=== PATIENT | male | born 1945 | race Caucasian/White ===

== ENCOUNTER 2022-08-30 03:03 | Inpatient (IN) ==
[2022-08-30 04:03] LABS: ABS Lymphocytes 0.7 10^3/ul (1.0-4.8); ABS Monocytes 0.8 10^3/ul (0-0.8); ABS Neutrophils 5.2 10^3/ul (1.5-7.7); Eosinophil % 0.6 %; Hematocrit 47 % (42-52); Hemoglobin 15.3 g/dL (14.0-18.0); Lymphocyte % 10.9 %; Mean Corpuscular HGB Conc 32 g/dL (31-36); Mean Corpuscular Hemoglobin 28 pg (27-31); Mean Corpuscular Volume 88 fL (80-94); Mean Platelet Volume 9.3 fL (7.4-10.4); Nucleated Red Blood Cells % 0.1; Platelet Count 133 10^3/uL (150-450); Red Blood Count 5.38 10^6 /uL (4.18-5.48); Red Cell Distribution Width 15 % (10-15); White Blood Count 6.8 10^3/uL (3.5-10.8)
[2022-08-30] MEDS ORDERED: Furosemide 40 mg/4 ml IV VIAL IV SLOW PU ONE (04:25)
[2022-08-30 04:51] LABS: Albumin 4.1 g/dL (3.2-5.2); Albumin/Globulin Ratio 1.2 (1-3); Calcium 10.3 mg/dL (8.6-10.3); Creatinine, Serum 1.29 mg/dL (0.67-1.17); Globulin 3.5 g/dL (2-4); Potassium 3.7 mmol/L (3.5-5.0); Total Bilirubin 3.9 mg/dL (0.2-1.0); Total Protein 7.6 g/dL (6.4-8.9); eGFR CKD-EPI 57.5 (>60)
[2022-08-30] MEDS ORDERED: Ondansetron 4 mg VIAL 2 MG/ML 2 ml VIAL IV PRN (05:07)
[2022-08-30] MEDS ORDERED: Digoxin IV 0.5 MG/2 ML AMP (0.25 MG/ML) IV SLOW PU ONE (05:07)
[2022-08-30 05:21] LABS: High Sensitivity Troponin 1 Hr 106 pg/mL (<20)
[2022-08-30 05:30] LABS: Venous Bicarbonate HCO3 39.6 mmol/L (24-28)
[2022-08-30] MEDS: Enoxaparin 100 MG/ML SYR SUBCUT SCH ×2 (05:59→17:59)
[2022-08-30 07:35] LABS: Urine Appearance Clear; Urine Bilirubin Negative (Negative); Urine Blood 1+ (Negative); Urine Color Yellow; Urine Glucose Negative (Negative); Urine Ketones Negative (Negative); Urine Nitrite Negative (Negative); Urine Protein Negative (Negative); Urine Specific Gravity 1.009 (1.002-1.030); Urine Urobilinogen Negative (Negative)
[2022-08-30 08:15] LABS: Urine Bacteria Absent (Absent); Urine Red Blood Cell Trace(0-2/hpf) (Absent); Urine White Blood Cell 1+(6-10/hpf) (Absent)
[2022-08-30] MEDS: Furosemide 40 mg/4 ml IV VIAL IV SLOW PU SCH ×2 (08:44→17:59)
[2022-08-30] MEDS ORDERED: Cholecalciferol (VIT D3) 1,000 unit TAB PO SCH (09:00)
[2022-08-30] MEDS ORDERED: Albuterol HFA INHALER 8 gm MDI INH SCH (09:00)
[2022-08-30] MEDS: Mometasone 220 MCG MDI INH SCH ×3 (09:19→19:04)
[2022-08-31 04:47] LABS: ABS Eosinophils 0.1 10^3/ul (0-0.6); ABS Lymphocytes 0.8 10^3/ul (1.0-4.8); ABS Monocytes 0.9 10^3/ul (0-0.8); ABS Neutrophils 4.6 10^3/ul (1.5-7.7); Eosinophil % 1.5 %; Hematocrit 40 % (42-52); Hemoglobin 12.6 g/dL (14.0-18.0); Lymphocyte % 12.4 %; Mean Corpuscular HGB Conc 32 g/dL (31-36); Mean Corpuscular Hemoglobin 28 pg (27-31); Mean Corpuscular Volume 88 fL (80-94); Mean Platelet Volume 9.4 fL (7.4-10.4); Nucleated Red Blood Cells % 0.1; Platelet Count 137 10^3/uL (150-450); Red Blood Count 4.55 10^6 /uL (4.18-5.48); Red Cell Distribution Width 15 % (10-15); White Blood Count 6.5 10^3/uL (3.5-10.8)
[2022-08-31 05:22] LABS: Calcium 9.3 mg/dL (8.6-10.3); Creatinine, Serum 1.47 mg/dL (0.67-1.17); Magnesium 1.7 mg/dL (1.9-2.7); eGFR CKD-EPI 49.1 (>60)
[2022-08-31] MEDS: Enoxaparin 100 MG/ML SYR SUBCUT SCH (05:22)
[2022-08-31 05:41] LABS: Phosphorus 2.4 mg/dL (2.5-5.0); Potassium 3.4 mmol/L (3.5-5.0)
[2022-08-31] MEDS ORDERED: Potassium Chlor 20 meq TAB.ER PO ONE ×2 (05:52→10:40)
[2022-08-31] MEDS ORDERED: Magnesium Sulfate 2 gm BAG 2 GM/50 ML BAG IVPB ONE (05:52)
[2022-08-31] MEDS ORDERED: Digoxin IV 0.5 MG/2 ML AMP (0.25 MG/ML) IV SLOW PU ONE (08:00)
[2022-08-31] MEDS ORDERED: Levalbuterol HFA INHALER MDI INH PRN (08:10)
[2022-08-31] MEDS: Furosemide 40 mg/4 ml IV VIAL IV SLOW PU SCH (08:19)
[2022-08-31] MEDS: Mometasone 220 MCG MDI INH SCH ×2 (09:06→19:03)
[2022-08-31 11:20] LABS: Theophylline 23.8 mcg/mL (10-20.0)
[2022-08-31] MEDS ORDERED: Enoxaparin 40 MG/0.4 ML SYR SUBCUT SCH (17:00)
[2022-08-31 17:41] LABS: ABS Eosinophils 0.1 10^3/ul (0-0.6); ABS Lymphocytes 0.7 10^3/ul (1.0-4.8); ABS Monocytes 1.3 10^3/ul (0-0.8); ABS Neutrophils 5.9 10^3/ul (1.5-7.7); Eosinophil % 1.7 %; Hematocrit 40 % (42-52); Hemoglobin 12.7 g/dL (14.0-18.0); Lymphocyte % 8.6 %; Mean Corpuscular HGB Conc 32 g/dL (31-36); Mean Corpuscular Hemoglobin 28 pg (27-31); Mean Corpuscular Volume 87 fL (80-94); Mean Platelet Volume 9.1 fL (7.4-10.4); Nucleated Red Blood Cells % 0.1; Platelet Count 146 10^3/uL (150-450); Red Cell Distribution Width 15 % (10-15)
[2022-08-31] MEDS ORDERED: Albuterol/Ipratropium NEB.SOL (2.5/0.5 MG) 3 ML NEB.SOLN INH ONE (18:11)
[2022-08-31 18:26] LABS: Calcium 9.2 mg/dL (8.6-10.3); Creatinine, Serum 1.51 mg/dL (0.67-1.17); Magnesium 2.2 mg/dL (1.9-2.7); Potassium 3.8 mmol/L (3.5-5.0); eGFR CKD-EPI 47.6 (>60)
[2022-08-31] MEDS: Albuterol/Ipratropium NEB.SOL (2.5/0.5 MG) 3 ML NEB.SOLN INH SCH (19:20)
[2022-09-01] MEDS ORDERED: KCL 20 MEQ/100 ML IVPREMIX 20 MEQ/100 ML BAG IV ONE (00:56)
[2022-09-01] MEDS ORDERED: Acetaminophen IV 1 GM/100ML 1,000 MG/100 ML BAG IV PRN (03:07)
[2022-09-01 05:15] LABS: ABS Eosinophils 0.1 10^3/ul (0-0.6); ABS Lymphocytes 0.8 10^3/ul (1.0-4.8); ABS Monocytes 1.1 10^3/ul (0-0.8); ABS Neutrophils 5.1 10^3/ul (1.5-7.7); Eosinophil % 1.8 %; Hematocrit 41 % (42-52); Hemoglobin 12.8 g/dL (14.0-18.0); Lymphocyte % 11.2 %; Mean Corpuscular HGB Conc 32 g/dL (31-36); Mean Corpuscular Hemoglobin 28 pg (27-31); Mean Corpuscular Volume 88 fL (80-94); Mean Platelet Volume 9.2 fL (7.4-10.4); Platelet Count 128 10^3/uL (150-450); Red Blood Count 4.63 10^6 /uL (4.18-5.48); Red Cell Distribution Width 15 % (10-15); White Blood Count 7.1 10^3/uL (3.5-10.8)
[2022-09-01 05:51] LABS: Calcium 9.2 mg/dL (8.6-10.3); Creatinine, Serum 1.27 mg/dL (0.67-1.17); Magnesium 2.1 mg/dL (1.9-2.7); Phosphorus 2.3 mg/dL (2.5-5.0); Potassium 3.9 mmol/L (3.5-5.0); Theophylline 19.7 mcg/mL (10-20.0); eGFR CKD-EPI 58.6 (>60)
[2022-09-01] MEDS: Albuterol/Ipratropium NEB.SOL (2.5/0.5 MG) 3 ML NEB.SOLN INH SCH ×2 (07:35→20:28)
[2022-09-01] MEDS: Mometasone 220 MCG MDI INH SCH ×2 (07:35→20:28)
[2022-09-01] MEDS: Enoxaparin 40 MG/0.4 ML SYR SUBCUT SCH (09:15)
[2022-09-01] MEDS ORDERED: Furosemide 20 mg/2 ml IV VIAL IV SLOW PU SCH (11:00)
[2022-09-02 05:31] LABS: ABS Eosinophils 0.1 10^3/ul (0-0.6); ABS Neutrophils 4.3 10^3/ul (1.5-7.7); Eosinophil % 1.8 %; Hematocrit 41 % (42-52); Hemoglobin 12.9 g/dL (14.0-18.0); Lymphocyte % 15.7 %; Mean Corpuscular HGB Conc 31 g/dL (31-36); Mean Corpuscular Hemoglobin 28 pg (27-31); Mean Corpuscular Volume 88 fL (80-94); Mean Platelet Volume 9.2 fL (7.4-10.4); Nucleated Red Blood Cells % 0.1; Platelet Count 126 10^3/uL (150-450); Red Blood Count 4.64 10^6 /uL (4.18-5.48); Red Cell Distribution Width 15 % (10-15); White Blood Count 6.4 10^3/uL (3.5-10.8)
[2022-09-02 05:54] LABS: Calcium 9.2 mg/dL (8.6-10.3); Creatinine, Serum 1.32 mg/dL (0.67-1.17); Potassium 3.9 mmol/L (3.5-5.0); eGFR CKD-EPI 55.9 (>60)
[2022-09-02 06:58] LABS: Albumin 3.5 g/dL (3.2-5.2); Albumin/Globulin Ratio 1.2 (1-3); Direct Bilirubin 1.4 mg/dL (0.03-0.18); Globulin 2.9 g/dL (2-4); Indirect Bilirubin 1.7 mg/dL (0.3-1.0); Total Bilirubin 3.1 mg/dL (0.2-1.0); Total Protein 6.4 g/dL (6.4-8.9)
[2022-09-02] MEDS: Albuterol/Ipratropium NEB.SOL (2.5/0.5 MG) 3 ML NEB.SOLN INH SCH ×2 (07:17→19:17)
[2022-09-02] MEDS: Mometasone 220 MCG MDI INH SCH ×2 (07:18→19:17)
[2022-09-02] MEDS: Enoxaparin 40 MG/0.4 ML SYR SUBCUT SCH (10:52)
[2022-09-02] MEDS ORDERED: fentaNYL 100 mcg/2 ml 50 MCG/ML VIAL ONE (12:33)
[2022-09-02] MEDS ORDERED: Heparin 1,000 UNIT/ML 10 ml (10,000 UNITS) CATHLAB/DIALYSIS ONE (12:33)
[2022-09-02] MEDS ORDERED: Midazolam 5 mg/5 ml VIAL 1 mg/ml 5 ml VIAL (5 mg) ONE (12:33)
[2022-09-02] MEDS ORDERED: Heparin 2 UNITS/ML 1000 mls 2,000 ML IV ONE (12:34)
[2022-09-02] MEDS ORDERED: nitroGLYCERIN DRIP 25,000 MCG/250 ML BTL ONE (12:34)
[2022-09-02] MEDS ORDERED: Lidocaine 1% MPF 5 ML VIAL ONE (12:34)
[2022-09-02] MEDS ORDERED: niCARdipine 0.1MG/ML IVPREMIX 20 MG/200 ML BAG IV ONE (12:35)
[2022-09-02] MEDS ORDERED: Iohexol 350 (CONTRAST) 100 ML PAK IV ONE (12:35)
[2022-09-02 13:52] LABS: POC SO2 88 %
[2022-09-02 13:54] LABS: POC SO2 53 %
[2022-09-03] MEDS ORDERED: Metoprolol Tartrate 5 mg VIAL 5 ml VIAL (1 mg/ml) IV PRN (04:36)
[2022-09-03 05:01] LABS: ABS Basophils 0.1 10^3/ul (0-0.2); ABS Eosinophils 0.2 10^3/ul (0-0.6); ABS Lymphocytes 1.2 10^3/ul (1.0-4.8); ABS Monocytes 0.9 10^3/ul (0-0.8); ABS Neutrophils 4.2 10^3/ul (1.5-7.7); Eosinophil % 3.6 %; Hematocrit 44 % (42-52); Hemoglobin 13.7 g/dL (14.0-18.0); Lymphocyte % 18.4 %; Mean Corpuscular HGB Conc 31 g/dL (31-36); Mean Corpuscular Hemoglobin 28 pg (27-31); Mean Corpuscular Volume 89 fL (80-94); Mean Platelet Volume 9.6 fL (7.4-10.4); Nucleated Red Blood Cells % 0.1; Platelet Count 135 10^3/uL (150-450); Red Cell Distribution Width 16 % (10-15); White Blood Count 6.6 10^3/uL (3.5-10.8)
[2022-09-03 05:36] LABS: Calcium 9.1 mg/dL (8.6-10.3)
[2022-09-03 05:42] LABS: Creatinine, Serum 1.29 mg/dL (0.67-1.17); eGFR CKD-EPI 57.5 (>60)
[2022-09-03] MEDS: Mometasone 220 MCG MDI INH SCH ×2 (07:24→18:58)
[2022-09-03] MEDS: Albuterol/Ipratropium NEB.SOL (2.5/0.5 MG) 3 ML NEB.SOLN INH SCH ×2 (07:24→18:57)
[2022-09-03] MEDS: Enoxaparin 40 MG/0.4 ML SYR SUBCUT SCH (09:08)
[2022-09-03] MEDS ORDERED: Norepinephrine 16MCG/ML BAGD5W 4,000 MCG/250 ML BAG IV ONE (21:21)
[2022-09-03] MEDS ORDERED: Norepinephrine 16MCG/ML BAGD5W 4,000 MCG/250 ML BAG IV SCH (22:00)
[2022-09-04] MEDS ORDERED: Albumin Human 5% 12.5 GM/250 ML BTL IV ONE (00:01)
[2022-09-04 05:01] LABS: Hematocrit 39 % (42-52); Hemoglobin 12.2 g/dL (14.0-18.0); Mean Corpuscular HGB Conc 32 g/dL (31-36); Mean Corpuscular Hemoglobin 28 pg (27-31); Mean Corpuscular Volume 88 fL (80-94); Mean Platelet Volume 9.3 fL (7.4-10.4); Platelet Count 131 10^3/uL (150-450); Red Blood Count 4.43 10^6 /uL (4.18-5.48); Red Cell Distribution Width 15 % (10-15); White Blood Count 7.6 10^3/uL (3.5-10.8)
[2022-09-04 05:35] LABS: Blood Urea Nitrogen 34 mg/dL (6-24); Calcium 8.9 mg/dL (8.6-10.3); Chloride 85 mmol/L (101-111); Creatinine, Serum 1.14 mg/dL (0.67-1.17); Glucose 99 mg/dL (70-100); Magnesium 1.9 mg/dL (1.9-2.7); Potassium 3.8 mmol/L (3.5-5.0); Sodium 129 mmol/L (135-145); eGFR CKD-EPI 66.7 (>60)
[2022-09-04 05:40] LABS: CO2 Carbon Dioxide 44 mmol/L (22-32)
[2022-09-04] MEDS: Digoxin IV 0.5 MG/2 ML AMP (0.25 MG/ML) IV SLOW PU SCH ×2 (06:36→13:28)
[2022-09-04] MEDS: Albuterol/Ipratropium NEB.SOL (2.5/0.5 MG) 3 ML NEB.SOLN INH SCH ×2 (06:57→19:11)
[2022-09-04] MEDS: Mometasone 220 MCG MDI INH SCH ×2 (07:02→19:11)
[2022-09-04] MEDS: Enoxaparin 40 MG/0.4 ML SYR SUBCUT SCH (08:09)
[2022-09-04] MEDS ORDERED: Albumin Human 25% 25 GM/100 ML BTL IV ONE (09:21)
[2022-09-05 04:29] LABS: Hematocrit 39 % (42-52); Hemoglobin 12.4 g/dL (14.0-18.0); Mean Corpuscular HGB Conc 32 g/dL (31-36); Mean Corpuscular Hemoglobin 28 pg (27-31); Mean Corpuscular Volume 88 fL (80-94); Mean Platelet Volume 9.2 fL (7.4-10.4); Platelet Count 130 10^3/uL (150-450); Red Blood Count 4.45 10^6 /uL (4.18-5.48); Red Cell Distribution Width 15 % (10-15); White Blood Count 7.3 10^3/uL (3.5-10.8)
[2022-09-05 05:08] LABS: Calcium 8.6 mg/dL (8.6-10.3); Creatinine, Serum 1.06 mg/dL (0.67-1.17); Magnesium 1.8 mg/dL (1.9-2.7); Potassium 3.9 mmol/L (3.5-5.0); eGFR CKD-EPI 72.7 (>60)
[2022-09-05] MEDS: Albuterol/Ipratropium NEB.SOL (2.5/0.5 MG) 3 ML NEB.SOLN INH SCH ×2 (07:25→19:30)
[2022-09-05] MEDS: Mometasone 220 MCG MDI INH SCH ×2 (07:25→19:30)
[2022-09-05] MEDS: Enoxaparin 40 MG/0.4 ML SYR SUBCUT SCH (08:12)
[2022-09-06 04:33] LABS: ABS Basophils 0.1 10^3/ul (0-0.2); ABS Eosinophils 0.3 10^3/ul (0-0.6); ABS Lymphocytes 0.9 10^3/ul (1.0-4.8); ABS Monocytes 1.3 10^3/ul (0-0.8); ABS Neutrophils 5.2 10^3/ul (1.5-7.7); Eosinophil % 3.4 %; Hematocrit 42 % (42-52); Hemoglobin 12.8 g/dL (14.0-18.0); Lymphocyte % 11.6 %; Mean Corpuscular HGB Conc 31 g/dL (31-36); Mean Corpuscular Hemoglobin 28 pg (27-31); Mean Corpuscular Volume 89 fL (80-94); Mean Platelet Volume 8.6 fL (7.4-10.4); Nucleated Red Blood Cells % 0.1; Platelet Count 138 10^3/uL (150-450); Red Blood Count 4.65 10^6 /uL (4.18-5.48); Red Cell Distribution Width 16 % (10-15); White Blood Count 7.6 10^3/uL (3.5-10.8)
[2022-09-06 06:01] LABS: Albumin 3.1 g/dL (3.2-5.2); Albumin/Globulin Ratio 1.3 (1-3); Calcium 8.7 mg/dL (8.6-10.3); Creatinine, Serum 0.89 mg/dL (0.67-1.17); Globulin 2.4 g/dL (2-4); Magnesium 1.7 mg/dL (1.9-2.7); Potassium 4.2 mmol/L (3.5-5.0); Total Bilirubin 2.6 mg/dL (0.2-1.0); Total Protein 5.5 g/dL (6.4-8.9); eGFR CKD-EPI 88.8 (>60)
[2022-09-06] MEDS: Albuterol/Ipratropium NEB.SOL (2.5/0.5 MG) 3 ML NEB.SOLN INH SCH ×2 (07:34→20:05)
[2022-09-06] MEDS: Mometasone 220 MCG MDI INH SCH ×2 (08:07→20:04)
[2022-09-06] MEDS ORDERED: Magnesium Sulfate 2 gm BAG 2 GM/50 ML BAG IVPB ONE (09:04)
[2022-09-06] MEDS: Enoxaparin 40 MG/0.4 ML SYR SUBCUT SCH (09:31)
[2022-09-07 05:04] LABS: ABS Basophils 0.1 10^3/ul (0-0.2); ABS Eosinophils 0.2 10^3/ul (0-0.6); ABS Lymphocytes 0.7 10^3/ul (1.0-4.8); ABS Monocytes 1.2 10^3/ul (0-0.8); ABS Neutrophils 4.1 10^3/ul (1.5-7.7); Eosinophil % 3.8 %; Hematocrit 39 % (42-52); Hemoglobin 12.2 g/dL (14.0-18.0); Lymphocyte % 11.6 %; Mean Corpuscular HGB Conc 31 g/dL (31-36); Mean Corpuscular Hemoglobin 28 pg (27-31); Mean Corpuscular Volume 89 fL (80-94); Mean Platelet Volume 8.5 fL (7.4-10.4); Nucleated Red Blood Cells % 0.1; Platelet Count 131 10^3/uL (150-450); Red Cell Distribution Width 16 % (10-15); White Blood Count 6.4 10^3/uL (3.5-10.8)
[2022-09-07 05:56] LABS: ALT 43 U/L (7-52); AST 55 U/L (13-39); Albumin 2.9 g/dL (3.2-5.2); Albumin/Globulin Ratio 1.3 (1-3); Alkaline Phosphatase 85 U/L (35-149); Blood Urea Nitrogen 26 mg/dL (6-24); CO2 Carbon Dioxide 40 mmol/L (22-32); Calcium 8.3 mg/dL (8.6-10.3); Chloride 91 mmol/L (101-111); Creatinine, Serum 0.97 mg/dL (0.67-1.17); Globulin 2.3 g/dL (2-4); Glucose 89 mg/dL (70-100); Magnesium 2.1 mg/dL (1.9-2.7); Potassium 4.5 mmol/L (3.5-5.0); Sodium 130 mmol/L (135-145); Total Protein 5.2 g/dL (6.4-8.9); eGFR CKD-EPI 80.9 (>60)
[2022-09-07] MEDS: Mometasone 220 MCG MDI INH SCH ×2 (07:44→19:01)
[2022-09-07] MEDS: Albuterol/Ipratropium NEB.SOL (2.5/0.5 MG) 3 ML NEB.SOLN INH SCH ×2 (07:44→19:01)
[2022-09-07] MEDS: Enoxaparin 40 MG/0.4 ML SYR SUBCUT SCH (09:49)
[2022-09-07 16:22] VITALS: BP 84/58
== END 2022-09-07 16:20 | disposition home or self-care (01) | DRG 192 ==
LOC: ED 03:03 → EDHOLD 05:07 → ICU 09:55
PROVIDERS: ADMIT Internal Medicine Critical Care Medicine; ATTEND Internal Medicine Critical Care Medicine